=== PATIENT | female | born 2005 | race Caucasian/White ===

== ENCOUNTER 2023-01-01 08:41 | Emergency (ER) | payer BC, SELFPAY ==
--- NOTE | ~2023-01-01 | XR_ITS ---
XR chest 2V DATE: 01/01/2023 09:25 INDICATION: Shortness of breath for one week, right-sided chest pain, radiating to right shoulder TECHNIQUE: PA and lateral views COMPARISON: None FINDINGS: Normal heart size. No hilar or mediastinal enlargement. No pulmonary infiltrate or consolid ation, pleural effusion or pulmonary vascular congestion or pneumothorax. Included skeletal structure s are unremarkable. IMPRESSION: Negative Reviewed, dictated and finalized at location A. [facility] IMPRESSION: Negative
[2023-01-01 09:00] VITALS: BP 118/80; PULSE 76; RESP 16; TEMP 36.8; O2SAT 100
--- NOTE | 2023-01-01 09:46 | ED.GENADULT ---
HPI - General Adult General Chief complaint: Unspecified Stated complaint: Difficulty taking a deep breath for a few weeks Time Seen by Provider: 01/01/23 09:11 Source: patient Mode of arrival: ambulatory Limitations: no limitations History of Present Illness HPI narrative: This is a 17 year old female that presents to the ER for difficulty breathing ongoing over the last month. Reports after exercise she feels tightness in her chest and like it is hard to catch a deep breath. She does not report any current shortness of breath, but has a game today so wanted to get checked out. Denies fever, cough, or lower extremity edema. Related Data Allergies Allergy/AdvReac Type Severity Reaction Status Date / Time No Known Allergies Allergy Verified 01/01/23 08:42 Review of Systems Review of Systems: CONSTITUTIONAL: Denies fever CARDIOVASCULAR: Reports chest tightness RESPIRATORY: Reports dyspnea. Denies cough All systems reviewed & are unremarkable except as noted in HPI and below PMFSH Past Medical History Medical History (Updated 01/01/23 @ 11:12 by Shannon Brink PA-C) No active medical problems Social History Social History (Updated 01/01/23 @ 09:51 by Shannon Brink PA-C) Smoking status: Current every day smoker Tobacco type: e-cigarettes/vaping Exam Narrative: GENERAL: Well-appearing, well-nourished, and in no acute distress. HEAD: Normocephalic, atraumatic. EYES: EOMI. CHEST: Clear to auscultation. No respiratory distress. No wheezes rales or rhonchi HEART: Regular rate and rhythm. No murmur heard. Normal peripheral pulses. EXTREMITIES: Normal range of motion. No edema. SKIN: Warm, dry, no rash. NEURO: No focal deficits. Alert and oriented x3. PSYCH: Normal mood and affect Course Course Emergency Course: Patient was updated on work-up and agrees with plan of care. Vital Signs Vital signs: Vital Signs Temperature 98.2 F 01/01/23 09:00 Pulse Rate 76 01/01/23 09:00 Respiratory Rate 16 01/01/23 09:00 Blood Pressure 118/80 01/01/23 09:00 Pulse Oximetry 100 01/01/23 09:00 Oxygen Delivery Room Air 01/01/23 09:00 Temperature 98.2 F 01/01/23 09:00 Pulse Rate 76 01/01/23 09:00 Respiratory Rate 16 01/01/23 09:00 Blood Pressure 118/80 01/01/23 09:00 Pulse Oximetry 100 01/01/23 09:00 Oxygen Delivery Room Air 01/01/23 09:00 Medical Decision Making MDM Narrative Medical decision making narrative: Patient presents to the emergency department for difficulty breathing ongoing over the last several weeks. Reports after exercise she feels as though her chest is tight and she has trouble catching her breath. She is not having any current shortness of breath. Her lungs are currently clear on exam. Oxygen saturation is 100% on room air. CBC and metabolic panel without concerning findings. D-dimer is not elevated. Chest x-ray without acute cardiopulmonary abnormality. Patient was updated on work-up and agrees with plan of care. Will prescribe albuterol inhaler as needed to use after exercise to see if this helps. She is to follow-up with primary care provider. She was given warnings to return to the ER Vital Signs Vital Signs: Vital Signs Temperature 98.2 F 01/01/23 09:00 Pulse Rate 76 01/01/23 09:00 Respiratory Rate 16 01/01/23 09:00 Blood Pressure 118/80 01/01/23 09:00 Pulse Oximetry 100 01/01/23 09:00 Oxygen Delivery Room Air 01/01/23 09:00 Temperature 98.2 F 01/01/23 09:00 Pulse Rate 76 01/01/23 09:00 Respiratory Rate 16 01/01/23 09:00 Blood Pressure 118/80 01/01/23 09:00 Pulse Oximetry 100 01/01/23 09:00 Oxygen Delivery Room Air 01/01/23 09:00 Lab Data Lab results reviewed: Yes I reviewed the patient's lab results. 01/01/23 09:57 01/01/23 09:57 Labs: Lab Results 01/01/23 01/01/23 01/01/23 Range/Units 09:57 09:57 10:18 WBC 4.3 L (4.5-10.0) K/mm3 RBC 4.38 (4.
[2023-01-01 10:03] LABS: Basophils Percent Auto 0.7 % (0.2-1.2); Eosinophils Absolute Auto 0.1 K/mm3 (0-0.3); Eosinophils Percent Auto 2.6 % (0-4.4); Hematocrit 40.1 % (37.0-47.0); Hemoglobin 13.9 g/dL (12.0-15.0); Immature Granulocyte Absolute 0.01 K/mm3 (0.00-0.031); Immature Granulocyte Percent A 0.2 % (0-0.5); Lymphocytes Absolute Auto 1.41 K/mm3 (0.9-3.2); Lymphocytes Percent Auto 33.1 % (18.3-44.2); Mean Corpuscular HGB Conc 34.7 g/dl (32-36); Mean Corpuscular Hemoglobin 31.7 pg (26-34); Mean Corpuscular Volume 91.6 fl (80-100); Mean Platelet Volume 9.7 fl (7.4-10.4); Monocytes Absolute Auto 0.4 K/mm3 (0.1-0.6); Monocytes Percent Auto 8.5 % (2.6-8.5); Neutrophils Absolute Auto 2.3 K/mm3 (1.3-6.7); Neutrophils Percent Auto 54.9 % (45.5-73.1); Platelet Count Result 200 k/mm3 (150-375); Red Blood Count 4.38 M/mm3 (4.2-5.4); Red Cell Distribution Width 12.9 % (11.5-14.5); White Blood Count 4.3 K/mm3 (4.5-10.0)
[2023-01-01 10:14] LABS: Anion Gap 10 mmol/L (8-16); Blood Urea Nitrogen 9 mg/dL (8-21); Calcium 9.3 mg/dL (8.9-10.7); Carbon Dioxide 22 mmol/L (22-30); Chloride 108 mmol/L (98-107); Estimated CRCL calculation 92 ml/min; Estimated Glomerular Filt Rate > 60; Glucose 93 mg/dL (65-110); Potassium 4.2 mmol/L (3.4-5.0); Sodium 140 mmol/L (134-143)
[2023-01-01 10:38] LABS: INR 1.2; Prothrombin Time 14.5 Seconds (11.1-14.7)
[2023-01-01 10:39] LABS: Partial Thromboplastin Time 34.7 SECONDS (22.3-36.8)
[2023-01-01 11:00] LABS: D Dimer 0.41 ug/mL (<0.48)
[2023-01-01 11:22] VITALS: BP 108/69; PULSE 72; RESP 16; O2SAT 97
== END 2023-01-01 11:23 | disposition home or self-care (01) ==
PROVIDERS: Emergency Provider Physician Assistant
DX: R06.09 Other forms of dyspnea (principal); F17.290 Nicotine dependence, other tobacco product, uncomplicated
CPT/HCPCS: 36415; 71046; 80048; 85025; 85380; 85610; 85730; 99283

== ENCOUNTER 2023-07-17 18:10 | Emergency (ER) | payer BC, SELFPAY ==
--- NOTE | ~2023-07-17 | XR_ITS ---
EXAM: XR finger 3rd RT min 2V DATE: 07/17/2023 18:39 HISTORY: Right 3rd digit pain post closed in door, small cut . COMPARISON: None available. FINDINGS: Normal mineralization. No fracture or dislocation. No lytic or blastic lesion. Joint space s are maintained. No erosion or periosteal change. Soft tissues within normal limits. IMPRESSION: No acute osseous finding in the right third finger. Reviewed, dictated and finalized at location K.
[2023-07-17 18:10] VITALS: BP 111/62; PULSE 78; RESP 16; TEMP 36.6; O2SAT 99
--- NOTE | 2023-07-17 19:19 | ED.WOUNDLAC ---
HPI - Wound/Laceration General Chief Complaint: Wound/Laceration Stated Complaint: right middle finger injury Time Seen by Provider: 07/17/23 19:14 History of Present Illness HPI narrative: This is a 17-year-old female, with no significant past medical history, who presents emergency department complaining of right finger pain after being caught in the door. She states she is up-to-date on her tetanus vaccination. She complains of 4/10 dull and intermittently sharp pain of the right middle finger. She also complains of some mild amount of tingling to the lateral and distal aspect of the right middle finger. Related Data Allergies Allergy/AdvReac Type Severity Reaction Status Date / Time No Known Allergies Allergy Verified 01/01/23 08:42 Review of Systems Review of Systems: CONSTITUTIONAL: Denies fever, chills, or sweats. CARDIOVASCULAR: Denies chest pain, palpitations, or edema. RESPIRATORY: Denies cough or dyspnea. SKIN: Laceration of right 3rd finger Denies rash or itching. MUSCULOSKELETAL: Right 3rd finger pain Denies back pain, or myalgia. NEUROLOGIC: Denies headache, numbness, dizziness, or weakness. PSYCHIATRIC: Denies anxiety or depression. PMFSH Past Medical History Medical History No active medical problems Surgical History Surgical History (Updated 07/18/23 @ 11:51 by Dionte Rae MD) No significant past surgical history Social History Social History Smoking status: Current every day smoker Tobacco type: e-cigarettes/vaping Exam Narrative: GENERAL: Well-appearing, well-nourished, and in no acute distress. HEAD: Normocephalic, atraumatic. EYES: PERRLA and EOMI. CHEST: No respiratory distress. Clear to auscultation. No wheezes rales or rhonchi HEART: Regular rate and rhythm.? No murmur heard.? Normal peripheral pulses. MSK: A 3mm laceration is noted to the lateral aspect of the distal right 3rd finger. There is no exposed bone or nail involvement. Normal range of motion of all fingers.? No edema. SKIN: Warm, dry, no rash. NEURO: Alert and oriented x3. Paresthesias to touch at the distal, lateral aspect of the right 3rd finger. Sensation and strength otherwise intact. PSYCH: Normal mood and affect. Course Course Emergency Course: 19:18 - X-ray not concerning for fracture. The patient's tetanus vaccinations are up-to-date. Shared decision making conversation had regarding wound repair options including suture, skin glue or bandaging. The patient prefers to bandage the wound and observe. Will discharge with recommendations for wound care and follow-up with her primary care provider. Discussed return and emergency precautions including signs/symptoms of wound infection and neurovascular compromise. The patient voiced understanding and is comfortable with the plan. All questions answered to her satisfaction. Vital Signs Vital signs: Vital Signs Temperature 97.9 F 07/17/23 18:10 Pulse Rate 78 07/17/23 18:10 Respiratory Rate 16 07/17/23 18:10 Blood Pressure 111/62 07/17/23 18:10 Pulse Oximetry 99 07/17/23 18:10 Oxygen Delivery Room Air 07/17/23 18:10 Temperature 97.5 F L 07/17/23 19:37 Pulse Rate 65 07/17/23 19:37 Respiratory Rate 20 07/17/23 19:37 Blood Pressure 115/67 07/17/23 19:37 Pulse Oximetry 100 07/17/23 19:37 Oxygen Delivery Room Air 07/17/23 18:10 MDM - Wound/Laceration MDM Narrative Medical decision making narrative: Plan: Imaging, pain control, reassess Differential Diagnosis Differential diagnosis: Likely laceration and other (Fracture, contusion, dislocation, other) Discharge Plan Discharge Clinical Impression: Laceration, Pain of right middle finger Patient Disposition: Home, Self-Care Condition: Stable Instructions: Antibiotic Form, Laceration (ED) Additional Instructions: You were seen in t
[2023-07-17 19:37] VITALS: BP 115/67; PULSE 65; RESP 20; TEMP 36.4; O2SAT 100
== END 2023-07-17 19:42 | disposition home or self-care (01) ==
PROVIDERS: Emergency Provider Preventive Medicine Aerospace Medicine
DX: S61.212A Laceration without foreign body of right middle finger without damage to nail, initial encounter (principal); W23.0XXA Caught, crushed, jammed, or pinched between moving objects, initial encounter
CPT/HCPCS: 73140; 99283

== ENCOUNTER 2025-02-26 13:04 | Emergency (ER) | payer BC, SELFPAY ==
--- NOTE | ~2025-02-26 | XR_ITS ---
XR ankle LT min 3V Ordering provider: BEATRIZ Lucio History: . pain anterior Lt ankle onset x 2 wks . Comparison: None. FINDINGS: BONES: No acute fracture or dislocation. JOINT SPACES: The ankle mortise is normal. SOFT TISSUES: Normal. IMPRESSION: No acute osseous abnormality left ankle. Reviewed, dictated and finalized at location A.
[2025-02-26 13:10] VITALS: BP 112/74; PULSE 70; RESP 16; TEMP 36.8; O2SAT 100
--- NOTE | 2025-02-26 13:56 | ED_ITS ---
HPI - General Adult General Chief complaint: Extremity Injury, Lower Stated complaint: Injured Ankle Source: patient Mode of arrival: ambulatory Limitations: no limitations History of Present Illness HPI narrative: Patient presents for evaluation of left ankle pain. She indicates she injured herself coming down from a lift in dance in August of 2024. She had an x ray that was negative for fracture. She states she was diagnosed with a sprain, was placed in a walking boot and she completed PT for about one month. She also applied ice but did not take any medication for her symptoms. Her pain did improve. She injured herself again at the start of this month, once again coming down from a lift in dance. Her pain is primarily in the anterior aspect of the ankle. She does not provide a numerical rating to her pain. Running makes her symptoms worse. Related Data Home Medications ?Medication ?Instructions ?Recorded ?Confirmed ?Last Taken ?Type lamotrigine 100 mg tablet mg 02/26/25 Unknown History Allergies Allergy/AdvReac Type Severity Reaction Status Date / Time No Known Allergies Allergy Verified 02/26/25 13:15 Review of Systems Review of Systems: CONSTITUTIONAL: Denies fever, chills, or sweats. EYES: Denies visual changes, redness, or discharge. ENT: Denies rhinorrhea, congestion, sore throat, or otalgia. CARDIOVASCULAR: Denies chest pain, palpitations, or edema. RESPIRATORY: Denies cough or dyspnea. GASTROINTESTINAL: Denies abdominal pain, nausea, vomiting, or diarrhea. GENITOURINARY: Denies dysuria or hematuria. SKIN: Denies rash or itching. MUSCULOSKELETAL: reports pain in the anterior aspect of the left ankle. Denies back pain NEUROLOGIC: Denies headache, numbness, dizziness, or weakness. PSYCHIATRIC: Denies anxiety or depression. [facility], [facility] Past Medical History Medical History No active medical problems Surgical History Surgical History No significant past surgical history Family History Family History Mother Family history non-contributory Social History Social History (Updated 02/26/25 @ 14:00 by NGUYỄN LucioP, ) Smoking status: Current every day smoker Tobacco type: e-cigarettes/vaping Gender identity (if verbalized by the patient): Female Spiritual care concerns: No Exam Narrative: GENERAL: Well-appearing, well-nourished, and in no acute distress. HEAD: Normocephalic, atraumatic. EYES: PERRLA and EOMI. ENT: Nares clear, no rhinorrhea or epistaxis. Mucous membranes moist. Oropharynx without tonsillar hypertrophy exudate or other lesions. Bilateral TMs pearly huang nonbulging NECK: Supple. No adenopathy or masses. No carotid bruits or JVD CHEST: Clear to auscultation. No respiratory distress. No wheezes rales or rhonchi HEART: Regular rate and rhythm. No murmur heard. Normal peripheral pulses. ABDOMEN: Soft, nontender, nondistended, normal active bowel sounds. EXTREMITIES: There is mild tenderness noted in the anterior aspect of the left ankle without crepitus or deformity. She is able to fully dorsi and plantar flex the left foot. No significant swelling SKIN: Warm, dry, no rash. NEURO: No focal deficits. Alert and oriented x3. PSYCH: Normal mood and affect. Course Course Emergency Course: This is a 19 year old female who presented for evaluation of left ankle pain. x-ray negative for fracture. Exam consistent with sprain. She ready has a walking boot. I advised she could also try purchasing a velcro ankle splint. Recommend NSAIDs for pain. Advised on RICE therapy. Follow-up with orthopedics. Go to the emergency department for worsening symptoms. Pt in agreement with plan of care. Level of Care: Express Care Visit Vital Signs Vital signs: Vital Signs Temperature 36.8 C 02/26/25 13:10 Pulse Rate 70 02/26/25 13:10 Respiratory Rate 16 02/26/25 13:10 Blood Pressure 112/74 02/26/25 13:10 Pulse Oximetry 100 02/26/25 13:10 Temperature 36.8 C 02/26/25 13:10 Pulse Rate 70 02/26/25 13:10 Respiratory Rate 16 02/26/25 13:10 Blood Pressure 112/74 02/26/25 13:10 Pulse Oximetry 100 02/26/25 13:10 Medical Decision Making Vital Signs Vital Signs: Vital Signs Temperature 36.8 C 02/26/25 13:10 Pulse Rate 70 02/26/25 13:10 Respiratory Rate 16 02/26/25 13:10 Blood Pressure 112/74 02/26/25 13:10 Pulse Oximetry 100 02/26/25 13:10 Temperature 36.8 C 02/26/25 13:10 Pulse Rate 70 02/26/25 13:10 Respiratory Rate 16 02/26/25 13:10 Blood Pressure 112/74 02/26/25 13:10 Pulse Oximetry 100 02/26/25 13:10 Imaging Data Radiologist's impression: XR ankle LT min 3V Ordering provider: BEATRIZ Lucio History: . pain anterior Lt ankle onset x 2 wks . Comparison: None. FINDINGS: BONES: No acute fracture or dislocation. JOINT SPACES: The ankle mortise is normal. SOFT TISSUES: Normal. IMPRESSION: No acute osseous abnormality left ankle. Discharge Plan Discharge Clinical Impression: Left ankle sprain Patient Disposition: Home Condition: Stable Instructions: Antibiotic Form, Ankle Sprain (ED) Patient Language: Georgian Prescriptions: No Action lamotrigine 100 mg tablet albuterol sulfate 90 mcg/actuation HFA aerosol inhaler 2 puff inhalation QID PRN (Reason: shortness of breath or wheezing) Qty: 8.5 0RF Follow-up/Referrals: Yunior Templeton MD [Physician] - Stand Alone Forms: Work/School Release IP Time of Disposition: 14:47
== END 2025-02-26 15:00 | disposition home or self-care (01) ==
PROVIDERS: Emergency Provider Nurse Practitioner
DX: S93.402A Sprain of unspecified ligament of left ankle, initial encounter (principal); X58.XXXA Exposure to other specified factors, initial encounter; Y93.41 Activity, dancing; F17.290 Nicotine dependence, other tobacco product, uncomplicated
CPT/HCPCS: 73610; 99213; G0463

== ENCOUNTER 2025-08-09 19:09 | Emergency (ER) | payer BC, SELFPAY ==
[2025-08-09] VITALS (10 sets, daily range): BP systolic 98–128; BP diastolic 62–79; PULSE 65–93; RESP 13–20; TEMP 36.4–36.6; O2SAT 96–100
--- NOTE | ~2025-08-09 | CT_ITS ---
EXAMINATION: CT abdomen pelvis w con DATE: 08/09/2025 22:22 INDICATION: Epigastric abdominal pain. Vomiting. TECHNIQUE: Computed tomography (CT) of the abdomen and pelvis was performed with 100 mL Omnipaque 350 intravenous contrast. Automated exposure control and iterative reconstruction technique were employed. The dose-length product was 171.06 mGy-cm. COMPARISON: None. FINDINGS: The visualized portions of lung bases are clear without pneumonia or pleural effusion. The heart size is normal. No pericardial effusion. The liver, spleen, gallbladder, pancreas, adrenal glands, and right kidney are normal. There is an 11 mm cyst in left kidney. There is an intrauterine device in expected position. There are no dilated loops of bowel. The appendix is normal. There are no pathologically enlarged lymph nodes. There is physiologic fluid in the pelvis. The bones are unremarkable. IMPRESSION: 1. No specific etiology for the patient's symptoms. Reviewed, dictated and finalized at location E.
--- NOTE | ~2025-08-09 | XR_ITS ---
Examination: XR chest 1V portable Clinical History: CP/Vomiting Comparison: 01/01/2023 Technique: Portable AP Findings: Heart size normal. Lungs clear. No acute bony abnormality. IMPRESSION: 1. No acute cardiopulmonary findings given portable technique. Reviewed, dictated and finalized at location R.
[2025-08-09 19:31] LABS: BEDSIDEPREGUCG Negative (Negative)
[2025-08-09 20:42] LABS: Add Urine Microscopic? YES; Appearance Urine Cloudy (Clear); Glucose Urine UA Negative (Negative); Leukocyte Esterase Ur 1+ LEU/UL (Negative); Nitrate Urine Negative (Negative); Non Pathogenic Casts 0-2; Specific Grav Ur 1.030 (1.001-1.035)
[2025-08-09] MEDS: PANTOPRAZOLE SODIUM IV 40 MG VIAL IV PUSH (20:49)
[2025-08-09] MEDS: LACTATED RINGERS 1,000 ML 999 ML IV CONT (20:49)
[2025-08-09] MEDS: LACTATED RINGERS 500 ML 999 ML IV CONT (20:49)
[2025-08-09] MEDS: ONDANSETRON INJ 4 MG/2 ML VIAL IV PUSH (20:50)
--- NOTE | 2025-08-09 20:58 | ED_ITS ---
HPI - Nausea/Vomiting/Diarrhea General Chief complaint: Nausea/Vomiting/Diarrhea <Tacho Lopez MD - Last Filed: 08/09/25 22:09> Stated complaint: N/V SINCE 1200 <Tacho Lopez MD - Last Filed: 08/09/25 22:09> Time Seen by Provider: 08/09/25 20:25 <Tacho Lopez MD - Last Filed: 08/09/25 22:09> History of Present Illness HPI Narrative: Patient is a 19-year-old female who presents ER with nausea and vomiting. It has been ongoing since she woke up today. She is not getting lightheaded and dizzy like she may pass out. No diarrhea. No known sick contacts. She is having discomfort in her chest from the forceful retching and from acid. Abdomen is cramping. She does not feel she is at risk for . No alleviating factors. <Tacho Lopez MD - Last Filed: 08/09/25 22:09> Related Data Home medications: Home Medications ?Medication ?Instructions ?Recorded ?Confirmed ?Last Taken ?Type lamotrigine 100 mg tablet mg 02/26/25 Unknown History <Tacho Lopez MD - Last Filed: 08/09/25 22:09> Allergies/Adverse reactions: Allergies Allergy/AdvReac Type Severity Reaction Status Date / Time lactose AdvReac Abdominal Verified 08/09/25 19:24 Pain <Tacho Lopez MD - Last Filed: 08/09/25 22:09> Review of Systems 2 Review of Systems: All systems reviewed & are unremarkable except as noted in HPI and below <Tacho Lopez MD - Last Filed: 08/09/25 22:09> Constitutional: Constitutional: Reports no additional constitutional complaints <Tacho Lopez MD - Last Filed: 08/09/25 22:09> Cardiovascular: Cardiovascular: Reports no additional cardiovascular complaints <Tacho Lopez MD - Last Filed: 08/09/25 22:09> Respiratory: Respiratory: Reports no additional respiratory complaints < Tacho Lopez MD - Last Filed: 08/09/25 22:09> Gastrointestinal: Gastrointestinal: Reports no additional gastrointestinal complaints <Tacho Lopez MD - Last Filed: 08/09/25 22:09> Genitourinary: Genitourinary: Reports no additional female genitourinary complaints <Tacho Lopez MD - Last Filed: 08/09/25 22:09> PMFSH Past Medical History Medical History: Medical History No active medical problems <Tacho Lopez MD - Last Filed: 08/09/25 22:09> Surgical History Surgical History: Surgical History No significant past surgical history <Tacho Lopez MD - Last Filed: 08/09/25 22:09> Family History Family History: Family History Mother Family history non-contributory <Tacho Lopez MD - Last Filed: 08/09/25 22:09> Social History Social History: Social History (Updated 02/26/25 @ 14:00 by Chico Juan, [facility], ) Smoking status: Current every day smoker Tobacco type: e-cigarettes/vaping Gender identity (if verbalized by the patient): Female Spiritual care concerns: No <Tacho Lopez MD - Last Filed: 08/09/25 22:09> Exam 2 Narrative: GENERAL: Ill-appearing, well-nourished, and in no acute distress. HEAD: Normocephalic, atraumatic. ENT: Mucous membranes moist. Normal TMs bilaterally. NECK: Supple. CHEST: Clear to auscultation. No respiratory distress. HEART: Regular rate and rhythm. Normal peripheral pulses. ABDOMEN: Soft, nontender, nondistended. EXTREMITIES: Normal range of motion. No edema. SKIN: Warm, dry, no rash. NEURO: Alert and oriented x3. PSYCH: Normal mood and affect. <Tacho Lopez MD - Last Filed: 08/09/25 22:09> Course Course Emergency Course: Patient signed out to me pending CT abdomen and pelvis as well as reassessment. She had 4+ ketonuria and had received 2 L of IV fluids as well as a combination antiemetics. Per the nurse patient was still having pain. Morphine ordered. CT as below. Bentyl ordered. Given how symptomatic patient was initially on presentation as well as her leukocytosis, reasonable to use antibiotics in this circumstance. Patient given 1st dose of ciprofloxacin and metronidazole. Short course of both of these are prescribed in addition to Bentyl. Patient reassessed at bedside she is feeling better. She has successfully p.o. challenged. We discussed her CT findings of enteritis / colitis and the rationale behind Bentyl as well as antibiotics. She and her family member/support person verified understanding and are in agreement. She did have an abnormal urinalysis and Ciprofloxacin will help cover this as well. Otherwise stable for DC. Also provided Rx for Zofran. Provided work note. Advised rest and maintain hydration. Provided contact information for a PCP as she does not have one. Educated on the disulfiram like affect taking Flagyl while drinking alcohol. She verifies understanding. <Ciara Edmonds MD - Last Filed: 08/10/25 09:15> Vital Signs Vital signs: Vital Signs Temperature 97.5 F L 08/09/25 19:22 Pulse Rate 71 08/09/25 19:22 Respiratory Rate 20 08/09/25 19:22 Blood Pressure 108/64 08/09/25 19:22 Pulse Oximetry 96 08/09/25 19:22 Oxygen Delivery Room Air 08/09/25 19:22 Temperature 97.9 F 08/09/25 23:00 Pulse Rate 68 08/10/25 00:45 Respiratory Rate 18 08/09/25 23:00 Blood Pressure 133/72 08/10/25 00:01 Pulse Oximetry 99 08/10/25 00:15 Oxygen Delivery Room Air 08/09/25 19:22 <Tacho Lopez MD - Last Filed: 08/09/25 22:09> Vital Signs Temperature 97.5 F L 08/09/25 19:22 Pulse Rate 71 08/09/25 19:22 Respiratory Rate 20 08/09/25 19:22 Blood Pressure 108/64 08/09/25 19:22 Pulse Oximetry 96 08/09/25 19:22 Oxygen Delivery Room Air 08/09/25 19:22 Temperature 97.9 F 08/09/25 23:00 Pulse Rate 68 08/10/25 00:45 Respiratory Rate 18 08/09/25 23:00 Blood Pressure 133/72 10/04/25 00:01 Pulse Oximetry 99 08/10/25 00:15 Oxygen Delivery Room Air 08/09/25 19:22 <Ciara Edmonds MD - Last Filed: 08/10/25 09:15> MDM - Nausea/Vomiting/Diarrhea Lab Data Result diagrams: 08/09/25 20:52 08/09/25 20:52 <Tacho Lopez MD - Last Filed: 08/09/25 22:09> Labs: Lab Results 08/09/25 08/09/25 08/09/25 Range/Units 19:30 20:30 20:52 WBC 15.8 H (4.5-10.0) K/mm3 RBC 3.94 L (4.2-5.4) M/mm3 Hgb 12.2 (12.0-15.0) g/dL Hct 36.0 L (37.0-47.0) % MCV 91.4 (80-100) fl MCH 31.0 (26-34) pg MCHC 33.9 (32-36) g/dl RDW 13.8 (11.5-14.5) % Plt Count 314 D (150-375) k/mm3 MPV 9.9 (7.4-10.4) fl Immature Gran % (Auto) 0.6 H (0-0.5) % Neut % (Auto) 91.2 H (45.5-73.1) % Lymph % (Auto) 4.9 L (18.3-44.2) % [place] % (Auto) 3.0 (2.6-8.5) % Eos % (Auto) 0.0 (0-4.4) % Baso % (Auto) 0.3 (0.2-1.2) % Lymph # (Auto) 0.77 L (0.9-3.2) K/mm3 [place] # (Auto) 0.5 (0.1-0.6) K/mm3 Eos # (Auto) 0.0 (0-0.3) K/mm3 Baso # (Auto) 0.1 (0.0-0.1) K/mm3 Abs Immat Gran (auto) 0.10 H (0.00-0.031) K/mm3 Absolute Neuts (auto) 14.4 H (1.3-6.7) K/mm3 Absolute Nucleated RBC 0.000 (0.0-0.012) K/mm3 Nucleated RBC % 0.0 (0.0-0.2) % Sodium 138 (137-145) mmol/L Potassium 3.5 (3.4-5.0) mmol/L Chloride 105 (98-107) mmol/L Carbon Dioxide 17 L (22-30) mmol/L Anion Gap 16 H (4-12) mmol/L BUN 12 (7-17) mg/dL Creatinine 0.79 (0.7-1.0) mg/dL Estim Creat Clear Calc 70 ml/min Estimated GFR > 60 (59 - ) Glucose 148 H (65-110) mg/dL Calcium 9.6 (8.4-10.2) mg/dL Total Bilirubin 1.1 (0.2-1.3) mg/dL AST 36 (14-36) U/L ALT 23 (6-35) U/L Alkaline Phosphatase 62 (38-126) U/L Total Protein 7.8 (6.3-8.2) g/dL Albumin 4.5 (3.5-5.1) g/dL Lipase 105 (23-300) U/L Urine Color Dark yellow (Yellow) Urine Appearance Cloudy H (Clear) Urine pH >=9.0 H (5.0-9.0) Ur Specific [place] 1.030 (1.001-1.035) Urine Protein 2+ H (Negative) mg/dL Urine Glucose (UA) Negative (Negative) mg/dL Urine Ketones 4+ H (Negative) mg/dL Ur Blood (Man) Non-hemolyzed trace H (Negative) Urine Nitrate Negative (Negative) Urine Bilirubin Negative (Negative) Urine Urobilinogen 1.0 (<2.0) mg/dL Leukocyte Esterase Rfl 1+ H (Negative) ANTOINETTE/UL Urine RBC 21-50 H (0-2) /hpf Urine WBC 21-50 H (0-3) /hpf Ur Squamous Epith Cells Few (Few) /hpf Urine Bacteria Rare /hpf Urine Casts 0-2 POC Urine HCG, Qual Negative (Negative) <Tacho Lopez MD - Last Filed: 08/09/25 22:09> Lab Results 08/09/25 08/09/25 08/09/25 Range/Units 19:30 20:30 20:52 WBC 15.8 H (4.5-10.0) K/mm3 RBC 3.94 L (4.2-5.4) M/mm3 Hgb 12.2 (12.0-15.0) g/dL Hct 36.0 L (37.0-47.0) % MCV 91.4 (80-100) fl MCH 31.0 (26-34) pg MCHC 33.9 (32-36) g/dl RDW 13.8 (11.5-14.5) % Plt Count 314 D (150-375) k/mm3 MPV 9.9 (7.4-10.4) fl Immature Gran % (Auto) 0.6 H (0-0.5) % Neut % (Auto) 91.2 H (45.5-73.1) % Lymph % (Auto) 4.9 L (18.3-44.2) % [place] % (Auto) 3.0 (2.6-8.5) % Eos % (Auto) 0.0 (0-4.4) % Baso % (Auto) 0.3 (0.2-1.2) % Lymph # (Auto) 0.77 L (0.9-3.2) K/mm3 [place] # (Auto) 0.5 (0.1-0.6) K/mm3 Eos # (Auto) 0.0 (0-0.3) K/mm3 Baso # (Auto) 0.1 (0.0-0.1) K/mm3 Abs Immat Gran (auto) 0.10 H (0.00-0.031) K/mm3 Absolute Neuts (auto) 14.4 H (1.3-6.7) K/mm3 Absolute Nucleated RBC 0.000 (0.0-0.012) K/mm3 Nucleated RBC % 0.0 (0.0-0.2) % Sodium 138 (137-145) mmol/L Potassium 3.5 (3.4-5.0) mmol/L Chloride 105 (98-107) mmol/L Carbon Dioxide 17 L (22-30) mmol/L Anion Gap 16 H (4-12) mmol/L BUN 12 (7-17) mg/dL Creatinine 0.79 (0.7-1.0) mg/dL Estim Creat Clear Calc 70 ml/min Estimated GFR > 60 (59 - ) Glucose 148 H (65-110) mg/dL Calcium 9.6 (8.4-10.2) mg/dL Total Bilirubin 1.1 (0.2-1.3) mg/dL AST 36 (14-36) U/L ALT 23 (6-35) U/L Alkaline Phosphatase 62 (38-126) U/L Total Protein 7.8 (6.3-8.2) g/dL Albumin 4.5 (3.5-5.1) g/dL Lipase 105 (23-300) U/L Urine Color Dark yellow (Yellow) Urine Appearance Cloudy H (Clear) Urine pH >=9.0 H (5.0-9.0) Ur Specific [place] 1.030 (1.001-1.035) Urine Protein 2+ H (Negative) mg/dL Urine Glucose (UA) Negative (Negative) mg/dL Urine Ketones 4+ H (Negative) mg/dL Ur Blood (Man) Non-hemolyzed trace H (Negative) Urine Nitrate Negative (Negative) Urine Bilirubin Negative (Negative) Urine Urobilinogen 1.0 (<2.0) mg/dL Leukocyte Esterase Rfl 1+ H (Negative) ANTOINETTE/UL Urine RBC 21-50 H (0-2) /hpf Urine WBC 21-50 H (0-3) /hpf Ur Squamous Epith Cells Few (Few) /hpf Urine Bacteria Rare /hpf Urine Casts 0-2 POC Urine HCG, Qual Negative (Negative) <Ciara Edmonds MD - Last Filed: 08/10/25 09:15> Imaging Data My impression: Chest x-ray: No acute cardiopulmonary process. <Tacho Lopez MD - Last Filed: 08/09/25 22:09> Radiologist's impression: CT Abd/Pelvis STat Rad: Wall thickening of the colon, consistent with colitis. Mild wall thickening of small bowel, consistent with enteritis. No bowel obstruction Impression: Enterocolitis, with preferential involvement of the colon < Ciara Edmonds MD - Last Filed: 08/10/25 09:15> Discharge Plan Discharge Clinical Impression: Enterocolitis, Nausea & vomiting, Abnormal urinalysis <Tacho Lopez MD - Last Filed: 08/09/25 22:09> Patient Disposition: Home <Tacho Lopez MD - Last Filed: 08/09/25 22:09> Condition: Stable <Tacho Lopez MD - Last Filed: 08/09/25 22:09> Instructions: Antibiotic Form, Urinary Tract Infection in Women (DC), Acute Nausea and Vomiting (DC), Colitis (ED), Enteritis (ED) <Tacho Lopez MD - Last Filed: 08/09/25 22:09> Additional Instructions: As we discussed, you have evidence of enterocolitis which is nonspecific inflammation/infection of the small and large intestines. The dicyclomine/Bentyl may help with the abdominal pain and cramping you experience as result of this. Given how symptomatic you were , will include antibiotics and the ciprofloxacin should help cover if you have a UTI. The ondansetron oral distintegrating tablets may help with recurrent nausea/vomiting. Follow-up with your primary care physician. Because you do not have 1, the name of the doctors listed below. Do not drink alcohol while taking Flagyl. <Tacho Lopez MD - Last Filed: 08/09/25 22:09> Patient Language: Danish <Tacho Lopez MD - Last Filed: 08/09/25 22:09> Prescriptions: New dicyclomine 10 mg capsule 10 mg PO BID PRN (Reason: abdominal pain) Qty: 20 0RF Rx Instructions: may substitute for tablets if necessary ciprofloxacin HCl [Cipro] 250 mg tablet 250 mg PO Q12H 5 Days Qty: 10 0RF ondansetron 4 mg tablet,disintegrating 4 mg PO Q8H PRN (Reason: nausea and vomiting) Qty: 7 0RF metronidazole 250 mg tablet 250 mg PO Q12H 5 Days Qty: 10 0RF No Action lamotrigine 100 mg tablet albuterol sulfate 90 mcg/actuation HFA aerosol inhaler 2 puff inhalation QID PRN (Reason: shortness of breath or wheezing) Qty: 8.5 0RF <Tacho Lopez MD - Last Filed: 08/09/25 22:09> Follow-up/Referrals: PHYSICIAN,[employer] [Primary Care Provider, Internal Medicine] J Carlos Brower MD [Physician, Family Practice] <Tacho Lopez MD - Last Filed: 08/09/25 22:09> Stand Alone Forms: Work/School Release IP <Tacho Lopez MD - Last Filed: 08/09/25 22:09> Time of Disposition: 00:23 <Tacho Lopez MD - Last Filed: 08/09/25 22:09> 00:23 <Ciara Edmonds MD - Last Filed: 08/10/25 09:15>
[2025-08-09 21:00] LABS: Hematocrit 36.0 % (37.0-47.0); Hemoglobin 12.2 g/dL (12.0-15.0); Immature Granulocyte Percent A 0.6 % (0-0.5); Lymphocytes Absolute Auto 0.77 K/mm3 (0.9-3.2); Mean Corpuscular HGB Conc 33.9 g/dl (32-36); Mean Corpuscular Hemoglobin 31.0 pg (26-34); Mean Corpuscular Volume 91.4 fl (80-100); Nucleated Red Blood Cells Absolute Auto 0.000 K/mm3 (0.0-0.012); Nucleated Red Blood Cells Perc 0.0 % (0.0-0.2); Platelet Count Result 314 k/mm3 (150-375); Red Blood Count 3.94 M/mm3 (4.2-5.4); White Blood Count 15.8 K/mm3 (4.5-10.0)
--- OUTSIDE RECORDS SUMMARY | 2025-08-09 21:26 | XMS_ITS | Clinical Summary ---
Author Organization [facility] Address [address] [place] [address] Care Team Providers Care Beauty Therapist Name Role Phone Geraldine Shaffer MD Primary Care Provider [phone] Allergies Active Allergy Reactions Criticality Noted Date Comments Lactose Diarrhea Low 04/15/2022 Medications busPIRone (BUSPAR) 10 mg tablet Take 1 tablet by mouth 2 (two) times a day 12/16/19 22 Active desvenlafaxine ER (PRISTIQ) 25 mg tablet extended release 24 hr 24 hr tablet Take 1 tablet by mouth daily 05/13/20 22 Active lamoTRIgine (LaMICtal) 100 mg tablet Take 1 tablet (100 mg total) by mouth daily 07/16/20 22 Active metoclopramide (REGLAN) 5 mg tablet Take 5 mg by mouth 05/13/20 21 Active QUEtiapine (SEROquel) 25 mg tablet Take 1 tablet (25 mg total) by mouth 2 (two) times a day 06/14/20 22 Active clobetasoL (TEMOVATE) 0.05 % gel Active gabapentin (NEURONTIN) 100 mg capsule Take 2 capsules (200 mg total) by mouth 3 (three) times a day as needed 04/28/20 22 Active hydrOXYzine (ATARAX) 10 mg tablet Take 1 tablet (10 mg total) by mouth 3 (three) times a day as needed 05/28/20 21 Active multivit bxsgjyvz-bedc-GK-c alcium (THERA-M) 9 mg iron-400 mcg tablet Take 1 tablet by mouth daily Active norethindrone-e.es tradioL-iron (Junel FE 11/26, ,) 1 mg-20 mcg (21)/75 mg (7) per tablet Take 1 tablet by mouth daily 09/22/20 18 Active OLANZapine (ZyPREXA) 2.5 mg tablet Take 1 tablet (2.5 mg total) by mouth 03/22/20 22 Active OLANZapine (ZyPREXA) 5 mg tablet Take 1 tablet (5 mg total) by mouth nightly 05/13/20 22 Active ondansetron ODT (ZOFRAN-ODT) 4 mg disintegrating tablet Take 1 tablet (4 mg total) by mouth 03/29/[address] (PROTONIX) 40 mg EC tablet Take 1 tablet (40 mg total) by mouth daily 04/17/20 22 Active sertraline (ZOLOFT) 100 mg tablet Take 0.5 tablets (50 mg total) by mouth 02/26/20 22 Active busPIRone (BUSPAR) 15 mg tablet Take 1 tablet (15 mg total) by mouth 2 (two) times a day 04/28/20 22 Active nitrofurantoin monohydrate (MACROBID) 100 mg capsule Take 1 capsule (100 mg total) by mouth 2 (two) times a day for 5 days 10 capsule 07/30/20 25 025 Discontinued nitrofurantoin monohydrate (MACROBID) 100 mg capsule Take 1 capsule (100 mg total) by mouth 2 (two) times a day for 5 days 10 capsule 07/30/20 25 025 Active Problems Problem Noted Date Diagnosed Date Multiple benign melanocytic nevi 12/03/2022 Neoplasm of uncertain behavior of skin 3 Abdominal pain, acute 04/15/2022 Nausea and vomiting 04/15/2022 Cannabis use disorder, moderate, dependence 03/07 Social anxiety disorder 09/30/2021 Major depressive disorder, single episode, sever e 06/03/2021 Anxiety disorder, unspecified 05/13/2021 Current severe episode of ma leidy depressive disorder without psychotic features without prior episode 05/13/2021 Eating disorder, unspecified 05/13/2021 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 Skin benign neoplasm 12/29/2016 Lesion of tongue 12/29/2016 Encounters Date Type Department Care Team Description 07/30/2025 4:15 PM CDT Office Visit [facility] [address] [address] Shannan Carrillo PA Acute cystitis with hematuria (Primary Dx) 07/30/2025 4:06 PM CDT - 07/30/2025 11:59 PM CDT Hospital Encounter [address] [address] Acute cystitis with hematuria Discharge Disposition: Discharge to home or self care 07/30/2025 Results Follow-Up [facility] [address] [phone] Shannan Carrillo PA POCT urinalysis dipstick, Vaginitis panel Vaginal, Urine culture Urine, clean voided, N. gonorrhoeae/C. 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 Gender Identity Not on file Sexual Orientation Not on file Obstetrics History Last Filed Vital Signs Vital Sign Reading Time Taken Comments Blood Pressure 108/76 07/30/2025 4:01 PM CDT Pulse 87 07/30/2025 4:01 PM CDT Temperature 36.9 C (98.4 F) 07/30/2025 4:01 PM CDT Respiratory Rate 20 07/30/2025 4:01 PM CDT Oxygen Saturation 99% 07/30/2025 4:01 PM CDT Inhaled Oxygen Concentration - - Weight 47.2 kg (104 lb) 07/30/2025 4:01 PM CDT Height 157.5 cm (5' 2) 01/04/2024 3:21 PM [employer]OR OF [employer]ITION SERVICES Body Mass Index 19.02 01/04/2024 3:21 PM [employer]OR OF FO[employer]UTRITION SERVICES Plan of Treatment Health Maintenance Due Date Last Done Comments Cervical Cancer Screening 2003 Depression Screening 2003 Hepatitis C Screening 2003 DTaP/Tdap/Td Vaccine (6 - Tdap) 2014 05/28/2009, 11/23/2005, 03/30/2004, Additional history exists Meningococcal B Vaccine (1 o f 2 - Standard) 2019 Regular Well Visit/Exam 18-64 2021 Influenza Vaccine (#1) 2025 6, 09/22/2015, 09/25/2013, Additional history exists Hepatitis B Screening Completed 06/30/2004 , 03/30/2004, 2003, Additional history exists Pneumococcal vaccine <65 Completed 004, 03/30/2004, 01/28/2004, Additional history exists Varicella Vaccines Completed 05/28/2009, 09/30/2004 HPV Vaccines Completed 09/28/2017, 10/14/2016 Meningococcal Vaccine Completed 06/18/2021, 011 Procedures Procedure Name Priority Date/Time Associated Diagnosis Comments POCT URINALYSIS DIPSTICK Routine 07/30/2025 4:14 PM CDT Acute cystitis with hematuria VAGINITIS PANEL Routine 07/30/2025 4:06 PM CDT Acute cystitis with hematuria N. GONORRHOEAE/C. TRACHOMATIS AMPLIFICATION Routine 07/30/2025 4:06 PM CDT Acute cystitis with hematuria URINE CULTURE Routine 07/30/2025 4:06 PM CDT Acute cystitis with hematuria from Last 3 Months Results * (ABNORMAL) POCT urinalysis dipstick (07/30/2025 4:14 PM CDT) Color, Urine, POC Yellow Clarity, ur, POC Cloudy(A) Clear Glucose, ur, POC Negative Negative Bilirubin, ur, POC Negative Negative Ketones, ur, POC Trace(A) Negative Specific [place], POC 1.030 1.003 - 1.030 Blood, ur, POC Large(A) Negative pH, ur, POC 6.0 5.0 - 8.0 Protein, ur, POC 30.(A) Negative Urobilinogen, urine, POC 0.2 0.2 - 1.0 mg/dL Nitrite, ur, POC Negative Negative Leukocytes, ur, POC Small(A) Negative Lot Number [id number] Urine 07/30/2025 4:14 PM CDT Shannan MENDEZ POINT OF CARE TEST ORDER LISA Final Result * N. gonorrhoeae/C. trachomatis Amplification Vaginal (07/30/2025 4:06 PM CDT) C. trachomatis Not Detected [facility] Comment:Testing performed by : [facility], [address] [place] [address] N. gonorrhoeae Not Detected [facility] Comment: Interpretive Data This assay detects Chlamydia trachomatis and Neisseria gonorrhoeae by nucleic acid amplification testing (NAAT). This assay has been cleared by the [place] Food and Drug administration. The performance characteristics of this test have been verified by the [facility] Molecular Infectious Disease laboratory. The performance characteristics of this test have not been evaluated in individuals less than 14 years of age. Current Interpretive Data was last revised on 2023. Testing performed by: [facility], [address] [place] [address] Vaginal (None) 07/30/2025 4: 06 PM CDT 07/31/2025 1:16 PM CDT Shannan MENDEZ LAB MICROBIOLOGY - GENER AL ORDERABLES Final Result [facility] [id number] Department [place] [address] [facility] * Vaginitis panel Vaginal (07/30/2025 4:06 PM CDT) Bacterial Vaginosis Not Detected Not Detected Comment:A negative result do es not preclude a possible infection. Results should be considered in conjunction with clinical presentation to determine the disease status. Bethany group Not Detected Not Detected [facility] Bethany glabrata/ krusei Not Detected Not Detected [facility] Trichomonas DNA Not Detected Not Detected [facility] Vaginal 07/30/2025 4:06 PM CDT 07/30/2025 8:11 PM CDT Narrative [facility] - 07/30/2025 9:27 PM CDT The [employer] Xpert Xpress MVP test detects DNA targets from anaerobic bacteria associated with bacterial vaginosis, Bethany species associated with vulvovaginal candidiasis, and Trichomonas vaginalis by nucleic acid amplification testing (NAAT). Results should be interpreted in conjunction with other clinical data. This test cannot be used to assess therapeutic success or failure because target nucleic acids may persist following antimicrobial therapy. This test has been cleared by the [place] Food and Drug Administration to aid in the diagnosis of vaginal infections in symptomatic women ages 14 and older. The performance characteristics of this test have been verified by the [facility]. Shannan MENDEZ LAB MICROBIOLOGY - GENER AL ORDERABLES Final Result Performing Organization Address [facility] [place] Co de Phone Number [facility] [address] [place] [address] [facility] * Urine culture Urine, clean voided (07/30/2025 4:06 PM CDT) Report Final Report: Less than 100,000 colonies/mL (clinically insignificant growth based on current clinical standards) Comment:Testing performed by : [facility], [address] [place] [address] Organism (CLINICALLY INSIGNIFICANT GROWTH [facility] Urine, clean voided 07/30/2025 4:06 PM CDT 07/30/2025 9:43 PM CDT Narrative [facility] - 08/01/2025 8:17 AM CDT Testing performed by [facility] Microbiology Laboratory ([phone]) Shannan MENDEZ LAB MICROBIOLOGY - GENER AL ORDERABLES Final Result [facility] [id number] Department [place] [place] [address] from Last 3 Months Insurance [employer] Care Teams Beauty Therapist Relationship Specialty Start Date End Date Geraldine Shaffer MD PCP - General 11/18/17
--- OUTSIDE RECORDS SUMMARY | 2025-08-09 21:26 | XMS_ITS | Clinical Summary ---
Author Organization [facility] Address [facility] [place] [address] Care Team Providers Care Rental Salesperson Name Role Phone Non-Staff, Provider Primary Care Provider Edelmiravasantana lable Allergies No known active allergies Medications norethindrone-ethin yl estradiol (11/26) 1-20 MG-MCG tablet Take 1 tablet by mouth daily. 9 Active lamoTRIgine (LAMICTAL) 25 MG chew Chew 1 tablet (25 mg total) by mouth daily. 30 tablet 4 Active ondansetron (ZOFRAN-ODT) 4 MG disintegrating tablet Take 1 tablet (4 mg total) by mouth every 8 (eight) hours as needed for Nausea. 20 tablet 5 Active Encounters Date Type Department Care Team Description 07/26/2025 4:15 PM CDT - 07/26/2025 6:24 PM CDT Emergency [facility] [address] [place] [address] Keshav Hoff MD Sore Throat; Vomiting Discharge Disposition: Home or Self Care (Routine Discharge) 07/26/2025 Travel from Last 3 Months Social History Tobacco Use Types Packs/Day Years Used Date Smoking Tobacco: Never Smokeless Tobacco: Never Alcohol Use Standard Drinks/Week Comments No 0 (1 standard drink = 0.6 oz pur e alcohol) AUDIT-C Answer Date Recorded Frequency of Alcohol Consumption Never 11/28/2019 Average Number of Drinks Not on file 020 Frequency of Binge Drinking Not on file 11/08 Comments No Sex and Gender Information Value Date Recorded Sex Assigned at Not on file Legal 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 Gender Identity Not on file Sexual Orientation Not on file Last Filed Vital Signs Vital Sign Reading Time Taken Comments Blood Pressure 115/66 07/26/2025 5:59 PM CDT Pulse 73 07/26/2025 4:28 PM CDT Temperature 36.6 C (97.9 F) 07/26/2025 4:28 PM CDT Respiratory Rate 18 07/26/2025 4:28 PM CDT Oxygen Saturation 92% 07/26/2025 5:59 PM CDT Inhaled Oxygen Concentration - - Weight 46.6 kg (102 lb 11.8 oz) 07/26/2025 4:28 PM CDT Height 157.5 cm (5' 2) 07/26/2025 4:28 PM CDT Body Mass Index 18.79 07/26/2025 4:28 PM CDT Plan of Treatment Health Maintenance Due Date Last Done Comments Cervical Cancer Screening Pap Smear (Age 21 to 29) Every 3 Years 2003 Cervical Cancer Screening 2003 Annual Physical 2006 DTaP, Tdap and Td Vaccines (6 - Tdap) 2014 05/28/2009, 11/23/2005, 03/30/2004, Additional history exists Meningococcal B Vaccine (1 of 2 - Standard) 2019 Hepatitis C 2021 COVID-19 Vaccine ( season) 2025 Hepatitis B Vaccines Completed 06/30/2004, 03/30/2004, 2003, Additional history exists Pneumococcal Vaccine: Pediatrics (0 to 5 Years) and At-Risk Patients (6 to 49 Years) Aged Out 09/30/2004, 03/30/2004, 01/28/2004, Additional history exists No longer eligible based on patient's age to complete this topic HPV Vaccines Completed 09/28/2017, 10/14/2016 Meningococcal Vaccine Completed 06/18/2021, 011 RSV Immunizations Under 20 Months Aged Out No longer eligible based on patient's age to complete this topic Procedures Procedure Name Priority Date/Time Associated Diagnosis Comments STREP A RAPID STAT 07/26/2025 4:40 PM CDT from Last 3 Months Results * STREP A RAPID (07/26/2025 4:40 PM CDT) SPECIMEN TYPE THROAT 07/26/2025 4:34 PM CDT [facility] RAPID STREP TEST NEGATIVE NEGATIVE 07/26/2025 4:54 PM CDT [facility] STRUCTURE OF ANTERIOR REGION OF NECK / Unknown 07/26/2025 4:40 PM CDT us Keshav Hoff MD MICROBIOLOGY - GENERAL ORDERA BLES Final Result [facility] [address] [place] [address], from Last 3 Months Insurance Daily Secret [employer] Care Teams Rental Salesperson Relationship Specialty Start Date End Date Non-Staff, Provider PCP - General UNKNOWN PHYSICIAN SPECIALTY 12/30/23
[2025-08-09] MEDS: PROMETHAZINE HCL 25 MG/ML AMPUL 12.5 MG IV PUSH (21:54)
[2025-08-09 21:59] LABS: Alanine Aminotransferase 23 U/L (6-35); Albumin Level 4.5 g/dL (3.5-5.1); Alkaline Phosphatase 62 U/L (38-126); Anion Gap 16 mmol/L (4-12); Aspartate Amino Transferase 36 U/L (14-36); Bilirubin,Total 1.1 mg/dL (0.2-1.3); Blood Urea Nitrogen 12 mg/dL (7-17); Calcium 9.6 mg/dL (8.4-10.2); Carbon Dioxide 17 mmol/L (22-30); Chloride 105 mmol/L (98-107); Estimated CRCL calculation 70 ml/min; Estimated Glomerular Filt Rate > 60; Glucose 148 mg/dL (65-110); Lipase 105 U/L (23-300); Potassium 3.5 mmol/L (3.4-5.0); Sodium 138 mmol/L (137-145); Total Protein 7.8 g/dL (6.3-8.2)
[2025-08-09] MEDS: MORPHINE SULFATE (*CRX) 4 MG/ML INJ IV PUSH (22:59)
[2025-08-09] MEDS: CIPROFLOXACIN 250 MG TABLET PO (23:20)
[2025-08-09] MEDS: DICYCLOMINE HCL 10 MG CAPSULE PO (23:21)
[2025-08-10] VITALS: PULSE 77; O2SAT 98
[2025-08-10 00:01] VITALS: BP 133/72; PULSE 80; O2SAT 99
[2025-08-10 00:15] VITALS: PULSE 80; O2SAT 99
[2025-08-10 00:33] VITALS: PULSE 73
[2025-08-10 00:45] VITALS: PULSE 68
== END 2025-08-10 00:48 | disposition home or self-care (01) ==
PROVIDERS: Student in an Organized Health Care Education/Training Program; Emergency Provider Emergency Medicine
DX: K52.9 Noninfective gastroenteritis and colitis, unspecified (principal); R82.998 Other abnormal findings in urine; F17.290 Nicotine dependence, other tobacco product, uncomplicated
CPT/HCPCS: 36415; 71045; 74177; 80053; 81001; 81025; 83690; 85025; 87086; 96361; 96374; 96375; 99284; A9270; J2270; J2405; J2470; J2550; J7120; Q9967

== ENCOUNTER 2025-08-29 11:05 | Outpatient (CLI) | payer OTHER, SELFPAY ==
--- NOTE | ~2025-08-29 | XR_ITS ---
EXAMINATION: XR toe 1st RT min 2V, 08/29/2025 11:32 CDT HISTORY: R great toe contusion COMPARISON: No comparisons available. Findings: No acute fracture or malalignment. No significant degenerative changes. Soft tissues unremarkable. Impression: No acute fracture or malalignment. Reviewed, dictated and finalized at location P. Impression: No acute fracture or malalignment.
== END 2025-08-29 11:06 | disposition home or self-care (01) ==
DX: S90.111A Contusion of right great toe without damage to nail, initial encounter (principal); X58.XXXA Exposure to other specified factors, initial encounter
CPT/HCPCS: 73660